=== PATIENT | male | born 1960 | race Caucasian/White ===

== ENCOUNTER → 2020-08-24 09:54 | Outpatient (CLI) | payer OTHER, SELFPAY ==
--- NOTE | 2020-08-24 11:54 | STRESSREP ---
Stress Test Report Date: 08/24/2020 Procedure: Exercise tolerance test Indications: Chest pain Consent: Per the patient Procedure: The patient exercised on a [place] protocol for 7 minutes and 45 seconds achieving a peak heart rate of 108 bpm (67% predicted maximal heart rate) with a peak blood pressure 180/88 mmHg and a peak MET capacity of approximately 9.7 MET's. The baseline ECG demonstrated sinus bradycardia. The peak exercise ECG demonstrated sinus tachycardia with no significant ischemic changes. [There were no cardiac dysrhythmias pretest, during exercise, or recovery]. The functional capacity was considered normal for age. The patient had no complaint of chest discomfort during exercise or recovery. The examination was discontinued secondary to shortness of breath. Impression: 1. Test is suboptimal as patient reached only 67% of maximal age-predicted heart rate. This significantly decreases the sensitivity of the test to detect ischemia. 2. Stress test is negative for exercise-induced chest pain. 3. Stress test test is negative for exercise-induced EKG changes of ischemia. 4. Functional capacity is normal for age This note was generated with [employer] software. It may contain incorrect words, spelling, and punctuation that were not noted in checking the note before signing.
== END ==
PROVIDERS: PCP Student in an Organized Health Care Education/Training Program; Referring Provider Student in an Organized Health Care Education/Training Program; Visit Provider Student in an Organized Health Care Education/Training Program
DX: R07.1 Chest pain on breathing (principal); R07.9 Chest pain, unspecified
CPT/HCPCS: 93017

== ENCOUNTER 2021-02-17 09:32 | Emergency (ER) | payer OTHER, SELFPAY ==
[2021-02-17 09:33] VITALS: BP 127/74; PULSE 77; RESP 16; TEMP 37.6; O2SAT 96; BMI 31.6
--- NOTE | 2021-02-17 10:08 | EDS_ITS ---
HPI History of Present Illness Chief Complaint: General Illness Informant: patient Narrative Narrative: Presents for evaluation worsening myalgias back pain urine frequency. Patient diagnosed with COVID-19 infection 3 days ago reviewed by myself positive from [facility] in [facility]. Patient vaccinated with [employer] back in July. First infection Covid contact with the nephew. Symptoms started the day prior on the . Reports mild cough fevers headache myalgias leading to testing. Yesterday lost taste and smell. Diarrhea after testing on the . Increasing urinary frequency lower back pain. Sent in with concerns for kidney failure. He is tolerating oral fluids. This is his first infection. History of hypertension. Took Tylenol 2 tabs prior to arrival continued severe muscle aches. Denies dyspnea. Denies chest or abdominal pain. Reports headache. Prior similar symptoms: No PFSH PFSH Medical History HTN (hypertension) Home Medications aspirin 325 mg PO DAILY 02/17/21 [History Last Taken Unknown] cholecalciferol (vitamin D3) [Vitamin D3] 125 mcg PO DAILY 02/17/21 [History Last Taken Unknown] dexamethasone 6 mg PO DAILY #9 tab 02/17/21 [Rx Last Taken Unknown] metoprolol succinate 25 mg PO QHS 02/17/21 [History Last Taken Unknown] Allergy/AdvReac Type Severity Reaction Status Date / Time acetaminophen [From Vicodin] Allergy Itching Verified 01/20/15 00:38 hydrocodone bitartrate Allergy Itching Verified 01/20/15 00:38 [From Vicodin] Surgical History History of eye surgery History of varicose vein ligation Social History Smoking Status: Former smoker ROS ROS ED Constitutional Constitutional ED: Reports fever(s); Denies chills or sweats Eyes Eyes: Denies change in vision ENT ENT ED: Denies dysphagia or sore throat Cardiovascular Cardiovascular: Denies chest pain, leg edema, palpitations or racing heartbeat Respiratory/Chest Respiratory/Chest: Reports cough; Denies dyspnea or dyspnea on exertion Gastrointestinal Gastrointestinal: Reports diarrhea; Denies abdominal pain, nausea or vomiting Genitourinary Genitourinary ED: Reports urinary frequency; Denies dysuria or hematuria Musculoskeletal Musculoskeletal: Reports back pain; Denies extremity pain or neck pain Integumentary Denies rash or wounds Neurologic Neurologic: Reports headache(s); Denies paresthesias or weakness EXAM Physical Exam Const Vital Signs: 02/17/21 09:33 02/17/21 09:38 02/17/21 12:13 Temperature 99.6 F H Temperature Source Oral Pulse Rate 77 87 Respiratory Rate 16 16 Respiratory Effort Normal Respiratory Pattern Normal Blood Pressure 127/74 H 136/74 H Blood Pressure Mean 91 Pulse Ox 96 94 Oxygen Delivery Method Room Air Positive well nourished and well developed General Appearance ED: well developed and NAD HEENT Reports moist mucous membranes normocephalic and atraumatic Eyes PERRL, EOMs intact bilaterally and conjunctivae normal General Eye ED: Yes normal appearance of both eyes Neck no lymphadenopathy and supple Neck Narrative: No meningismus General: Negative for tenderness Chest Wall Chest: Negative for tenderness Resp normal respiratory effort and normal air movement Effort and Inspection: symmetric chest movement; Negative for respiratory distress Cardio regular rate, regular rhythm and no murmurs Peripheral Pulses: pulses 2+ throughout GI normal to inspection, nondistended, normoactive bowel sounds and non-tender Palpation: Negative for guarding or rebound tenderness present Back/Spine no CVA tenderness and no thoracic nor lumbar tenderness Extremity normal to inspection General Extremety ED: Negative for edema or tenderness General Extremity: Negative for edema Neuro oriented x3 and no sensory deficits noted Sensorium / Orientation: awake and alert Skin no rashes or lesions noted and no wounds MDM MDM MDM Narrative Medical decision making narrative: Patient positive Covid confirmed by myself. Elevated temperature at 99.6, however status post Tylenol. In the room 92 to 94% on room air. Discussed with patient he would like treatment for antivirals. Discussed that this would be performed as an inpatient. He is started on dexamethasone, labs chest x-ray IV fluids given. Will check urine for his frequency. We will plan to admit. Urine negative for infection renal function is normal. I did add Toradol. Chest x-ray reviewed by myself shows no acute process. Patient's for C mortality score is a 6. Patient wanted to be considered for antiviral treatment which would only be treated as an inpatient. I spoke with hospitalist Dr. Jacinto, who does not feel patient requires hospitalization and did not recommend viral treatment. He also states his current colleagues in the hospital would not recommend this. He recommended antibiotic treatment as an outpatient which she is a candidate for. I discussed this with the patient. Consult will be placed in for him to be considered for outpatient monoclonal antibody treatment. 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 Return precautions discussed. With his pulse ox 92%, I will continue dexamethasone for him. All questions were answered. Lab Data Labs: Laboratory Results - last 24 hr 02/17/21 02/17/21 02/17/21 09:52 09:52 09:52 WBC 5.7 RBC 5.41 Hgb 15.9 Hct 47.7 MCV 88.2 MCH 29.4 MCHC 33.3 RDW Std Deviation 40.0 RDW Coeff of Rosalio 12.3 Plt Count 229 MPV 9.3 Immature Gran % (Auto) 0.400 Neut % (Auto) 79.3 H Lymph % (Auto) 10.0 L [place] % (Auto) 9.7 Eos % (Auto) 0.4 Baso % (Auto) 0.2 Absolute Neuts (auto) 4.5 Absolute Lymphs (auto) 0.57 L Nucleated RBC % 0 Sodium 137 Potassium 3.8 Chloride 105 Carbon Dioxide 25.0 Anion Gap 7 BUN 17 Creatinine 0.84 Estim Creat Clear Calc 104.37 Est GFR (MDRD) Af Amer 119 Est GFR (MDRD) Non-Af 98 BUN/Creatinine Ratio 20.2 H Glucose 102 Lactic Acid 0.9 Calcium 8.3 L Total Bilirubin 0.30 AST 16 ALT 16 Alkaline Phosphatase 55 C-React Prot Ext Range 14.60 H Total Protein 7.3 Albumin 3.3 Globulin 4.0 Albumin/Globulin Ratio 0.8 L Urine Color Urine Clarity Urine pH Ur Specific Parks Urine Protein Urine Glucose (UA) Urine Ketones Urine Occult Blood Urine Nitrite Urine Bilirubin Urine Urobilinogen Ur Leukocyte Esterase Urine RBC Urine WBC Ur Squamous Epith Cells Urine Bacteria Urine Mucus 02/17/21 10:27 WBC RBC Hgb Hct MCV MCH MCHC RDW Std Deviation RDW Coeff of Rosalio Plt Count MPV Immature Gran % (Auto) Neut % (Auto) Lymph % (Auto) [place] % (Auto) Eos % (Auto) Baso % (Auto) Absolute Neuts (auto) Absolute Lymphs (auto) Nucleated RBC % Sodium Potassium Chloride Carbon Dioxide Anion Gap BUN Creatinine Estim Creat Clear Calc Est GFR (MDRD) Af Amer Est GFR (MDRD) Non-Af BUN/Creatinine Ratio Glucose Lactic Acid Calcium Total Bilirubin AST ALT Alkaline Phosphatase C-React Prot Ext Range Total Protein Albumin Globulin Albumin/Globulin Ratio Urine Color Yellow Urine Clarity Clear Urine pH 5.0 Ur Specific Parks 1.025 Urine Protein 30 H Urine Glucose (UA) Normal Urine Ketones 5 H Urine Occult Blood 25 H Urine Nitrite Negative Urine Bilirubin Negative Urine Urobilinogen Normal Ur Leukocyte Esterase Negative Urine RBC 0 SEEN Urine WBC 0 SEEN Ur Squamous Epith Cells 0 SEEN Urine Bacteria 0 SEEN Urine Mucus 0 SEEN Radiography Diagnostic Testing: Clinical Impression(s) from Imaging Studies Chest X-Ray 02/17/21 10:37 IMPRESSION: Normal x-ray examination of the chest. Electronically Signed: Nadeem Horne MD at 11:58 EDT Tel , Service support , Discharge Plan Triage Chief Complaint: General Illness ED Provider: Hua Ernst Dx/Rx/DC Orders Clinical Impression: COVID-19 virus infection, Myalgia, Cough, Headache, Loss of taste, Loss of smell Instructions: Coronavirus Disease 2019 (COVID-19): Caring for Yourself or Others, ED - COVID Monoclonal AB Infusion ... Prescriptions: New dexamethasone 6 mg tablet 6 mg PO DAILY Qty: 9 RF: 0 No Action aspirin 325 mg Tablet 325 mg PO DAILY RF: 0 metoprolol succinate 25 mg tablet extended release 24 hr 25 mg PO QHS RF: 0 cholecalciferol (vitamin D3) [Vitamin D3] 125 mcg (5,000 unit) Tablet 125 mcg PO DAILY RF: 0 Other Ambulatory Orders: COVID Outpatient Monoclonal Antibody Referral (Routine) Timeframe: 1 Day Facility: [facility] - Location: [facility] Ordered By: Dr. 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 Return if pulse ox drops below 88%. Disposition Disposition: Home, Self Care Discharge Date/Time: 02/17/21 12:14
[2021-02-17 10:23] LABS: Absolute Lymphocyte Count 0.57 X10^3/uL (0.83-4.51); Absolute Neutrophil Count 4.5 X10^3/uL (2.0-7.7); Basophil# 0.01 X10^3/uL; Basophil% 0.2 % (0-1); Eosinophil# 0.02 X10^3/uL; Eosinophils% 0.4 % (0-5); Hematocrit 47.7 % (40-54); Hemoglobin 15.9 g/dL (13.0-16.5); Lymphocyte # 0.57 X10^3/ul (0.83-4.51); Mean Corp Hgb Conc 33.3 g/dL (32-36); Mean Corpuscular Hgb 29.4 pg (27.0-32.0); Mean Corpuscular Volume 88.2 fL (80-94); Mean Platelet Vol. 9.3 fl (6.2-12.0); Monocyte# 0.55 X10^3/uL; Monocyte% 9.7 % (0-10); NRBC Flagged by Analyzer 0 % (0-5); Neutrophil # 4.51 X10^3/uL (2.7-7.7); Neutrophil % 79.3 % (47-70); POSITIVE DIFFERENTIAL YES; Platelet Count 229 K/mm3 (150-450); RBC Distribution Width CV 12.3 % (11.6-14.6); Red Blood Count 5.41 M/mm3 (4.6-6.2); White Blood Count 5.7 K/mm3 (4.4-11.0)
[2021-02-17 10:25] LABS: Differential Indicated SCAN CRITERIA MET
[2021-02-17 10:31] LABS: Bacteria 0 SEEN /hpf (None Seen); Mucous, Urine 0 SEEN /hpf (<or=2+); Red Blood Cells-Urine 0 SEEN /hpf (0-5); Squamous Epithelial Cells - UA 0 SEEN /hpf (0-5); White Blood Cells 0 SEEN /hpf (0-5)
[2021-02-17] MEDS: dexAMETHasone 4 MG Tablet 6 MG PO (10:33)
[2021-02-17] MEDS: 0.9% Normal Saline 1,000 ML 125 ML IV (10:33)
[2021-02-17 10:36] LABS: Lactic Acid 0.9 mmol/L (0.4-1.9)
[2021-02-17 10:37] LABS: Color, Urine Yellow (Yellow); Glucose, Dipstick Normal (Normal); Ketone-Dipstick 5 mg/dl (Negative); Leukocyte Esterase-Dipstick Negative /ul (Negative); Nitrite-Dipstick Negative (Negative); Occult Blood-Urine 25 /ul (Negative); Protein-Dipstick 30 mg/dl (Negative); Specific Gravity, Urine 1.025 (1.002-1.030); Urine Bilirubin Dipstick Negative (Negative); Urine Clarity Clear (Clear); Urine Urobilinogen Normal (Normal)
--- NOTE | 2021-02-17 10:37 | RAD_ITS ---
STUDY: X-RAY CHEST REASON FOR EXAM: Male, 60 years old. cough body aches fever recent Covid positive test TECHNIQUE: Frontal portable view of the chest COMPARISON: None. FINDINGS: The lungs are clear and expanded. There is no demonstrated pleural abnormality. Normal size heart. Normal mediastinum and jonelle. Normal visualized pulmonary arteries. Normal visualized aortic arch and descending thoracic aorta. There are benign calcified lymph nodes in the right hilum and mediastinum. Normal visualized thoracic spine. Normal visualized ribs, clavicles, and shoulders. There is no demonstrated abnormality of the visualized soft tissue structures of the upper abdomen. RAD/Chest 1 View (Portable) IMPRESSION: Normal x-ray examination of the chest. Electronically Signed: Nadeem Horne MD at 11:58 EDT Tel , Service support ,
[2021-02-17 11:06] LABS: ALB/GLOB Ratio 0.8 RATIO (0.9-2.4); AST(SGOT) 16 U/L (15-37); Alanine Aminotransfer ALT/SGPT 16 U/L (16-61); Albumin, Serum 3.3 g/dL (3.2-5.0); Alkaline Phosphatase 55 U/L (45-117); Anion Gap 7 (5-15); BUN 17 mg/dL (7-18); BUN/Creat Ratio 20.2 RATIO (10-20); Calcium,Total 8.3 mg/dL (8.5-10.1); Chloride 105 mmol/L (98-107); Creatinine, Serum 0.84 mg/dL (0.70-1.30); EST Glomerular Filtration Rate 98 mL/min (>60); Est Glom Filt Rate - Afr Amer 119 mL/min (>60); Estimated Creatinine Clearance 104.37 ml/min; Glucose 102 mg/dL (74-106); Potassium 3.8 mmol/L (3.5-5.1); Protein, Total 7.3 g/dL (6.4-8.2); Sodium Level 137 mmol/L (136-145)
[2021-02-17] MEDS: Ketorolac 15 MG/ML Vial IV (11:51)
[2021-02-17 12:13] VITALS: BP 136/74; PULSE 87; RESP 16; O2SAT 94
== END 2021-02-17 12:14 | disposition home or self-care (01) ==
PROVIDERS: Emergency Provider Emergency Medicine; PCP Student in an Organized Health Care Education/Training Program
DX: U07.1 COVID-19 (principal); I10 Essential (primary) hypertension; Z79.82 Long term (current) use of aspirin; Z87.891 Personal history of nicotine dependence
CPT/HCPCS: 36415; 71045; 80053; 81001; 83605; 85025; 86140; 87040; 96361; 96374; 99285; J7030; A4216

== ENCOUNTER 2021-02-19 14:42 | Outpatient (CLI) | payer OTHER, SELFPAY ==
[2021-02-19 14:51] VITALS: BP 134/77; PULSE 58; RESP 16; TEMP 36.6; O2SAT 100; BMI 32.5
[2021-02-19] MEDS: 0.9% Saline Lock 10 ML Syringe IV (14:56)
[2021-02-19 15:31] VITALS: BP 135/68; PULSE 56; RESP 16; TEMP 36.9; O2SAT 98
[2021-02-19 16:31] VITALS: BP 142/82; PULSE 58; RESP 16; TEMP 36.8; O2SAT 98
== END 2021-02-19 16:41 | disposition home or self-care (01) ==
LOC: MS3OUT 14:42 → MS3 14:43
PROVIDERS: PCP Student in an Organized Health Care Education/Training Program; Referring Provider Nurse Practitioner Adult Health; Visit Provider Nurse Practitioner Adult Health
DX: Z23 Encounter for immunization (principal); U07.1 COVID-19
CPT/HCPCS: J7050; M0243; A4216; Q0244

== ENCOUNTER 2021-05-17 07:05 | Outpatient (CLI) | payer BC, SELFPAY ==
--- NOTE | 2021-05-17 07:08 | CT_ITS ---
STUDY: CT PELVIS WITH CONTRAST REASON FOR EXAM: Male, 61 years old. Right groin pain. Questionable right inguinal hernia. RADIATION DOSAGE (If Supplied By Facility): CTDIvol = ( 28.20 ) mGy, DLP = ( 1357.29 ) mGycm TECHNIQUE: Transaxial imaging of the pelvis was performed with oral contrast. Oral and amp;amp; IV Readi-CAT and amp;amp; 100mL Isovue-370 was administered intravenously. Individualized dose optimization techniques were used for this CT. COMPARISON: None. FINDINGS: Normal urinary bladder. Central prostatic calcification. Normal visualized small intestine. There are multiple colonic diverticula of the sigmoid colon consistent with chronic diverticulosis. There is no pelvic fluid. There is no pelvic lymphadenopathy or mass lesion. Normal visualized pelvic arteries. Small bilateral inguinal hernias containing fat. Small bilateral hydroceles. Small benign-appearing inguinal lymph nodes. There are diffuse degenerative changes of the visualized lumbar spine. CT/Pelvis WITH IV Contrast IMPRESSION: Small bilateral inguinal hernias containing fat. Scattered sigmoid diverticula. Electronically Signed: Balwinder Samuel MD at 8:43 EST , Service support ,
[2021-05-17 07:25] LABS: CREATININE FINGERSTICK 0.8 mg/dL (0.70-1.30); EGFR FINGERSTICK > 60.0000 mL/min (>60)
== END 2021-05-17 23:59 | disposition short-term general hospital (02) ==
PROVIDERS: PCP Student in an Organized Health Care Education/Training Program; Referring Provider Surgery; Visit Provider Surgery
DX: R10.31 Right lower quadrant pain (principal)
CPT/HCPCS: 72193; Q9967